=== PATIENT | male | born 1985 | race African-American/Black ===

== ENCOUNTER 2017-08-01 16:09 | Emergency (ER) | payer MEDICAID, SELFPAY ==
[2017-08-01 16:11] VITALS: BP 136/76; PULSE 67; RESP 16; TEMP 37.2; O2SAT 97; BMI 18.3
== END 2017-08-01 16:55 | disposition left against medical advice (07) ==
LOC: ED 16:48
PROVIDERS: Emergency Provider Emergency Medicine
DX: R11.2 Nausea with vomiting, unspecified (principal)

== ENCOUNTER 2017-08-01 19:03 | Emergency (ER) | payer MEDICAID, SELFPAY ==
[2017-08-01 19:04] VITALS: BP 122/71; PULSE 85; RESP 16; TEMP 37.8; O2SAT 98; BMI 25.2
--- NOTE | 2017-08-01 19:46 | ED.DCSUM_ITS ---
- ER Visit Summary Date of Service: 08/01/17 Chief Complaint: Nausea and vomiting History of Present Illness: The patient is a 31 M presenting with nausea and vomiting since yesterday. He states he has had several episodes of emesis and was unable to keep p.o. down. He does have sick contacts. Denies possibility of bad food exposure. He states he has had loose stool. Temperature up to 100.0. Denies other complaints. Physical Examination: Vitals are stable. Patient is afebrile. Alert no acute distress. HEENT exam is unremarkable. Neck is supple. Lungs are clear and equal bilaterally. Heart is regular rate and rhythm. Abdomen is soft mild epigastric tenderness, no rebound or guarding. Extremities are unremarkable. Skin is warm and dry. No focal neurologic deficit. Remainder of exam is unremarkable. Emergency Department Course and Treatment: Patient is given Zofran po. He had a vagal episode when IV was attempted. He states he did not completely pass out. He refuses further IV placement attempts. CBC shows a white count of 13.4. Chemistries unremarkable. Liver lipase are normal except for AST 47. Patient is feeling improved in the emergency department. He is able to tolerate p.o. He is given a prescription for Zofran. Advised to follow-up with primary care physician. Advised return ED if worsening complaints. Disposition: Discharge home Impression: Nausea vomiting This note was generated with [employer] dictation software. It may contain incorrect words, spelling, and punctuation that were not noted in review of the chart prior to signing ED Disposition - Plan for ED Patient: Chief Complaint: Nausea/Vomiting Referrals: Care Physician,No Primary [Primary Care Provider] -
[2017-08-01] MEDS: Ondansetron ODT 4 MG Tablet PO (20:19)
[2017-08-01 20:41] LABS: Absolute Neutrophil Count 7.6 X10^3/uL (2.0-7.7); Basophil# 0.12 X10^3/uL; Basophil% 0.9 % (0-1); Eosinophil# 0.11 X10^3/uL; Eosinophils% 0.8 % (0-5); Hematocrit 38.4 % (40-54); Hemoglobin 13.9 g/dl (13.0-16.5); Mean Corp Hgb Conc 36.2 g/gl (32-36); Mean Corpuscular Hgb 31.9 pg (27.0-32.0); Mean Corpuscular Volume 88.1 fL (80-94); Mean Platelet Vol. 10.7 fl (6.2-12.0); Monocyte# 1.32 X10^3/uL; Monocyte% 9.8 % (0-10); Neutrophil # 7.56 X10^3/uL (2.7-7.7); Neutrophil % 56.4 % (47-70); Platelet Count 295 K/mm3 (150-450); RBC Distribution Width CV 11.8 % (11.6-14.6); RBC Distribution Width SD 36.6 fl (35.1-43.9); Red Blood Count 4.36 M/mm3 (4.6-6.2); White Blood Count 13.4 K/mm3 (4.4-11.0)
[2017-08-01 20:44] LABS: POSITIVE COUNT NO; POSITIVE DIFFERENTIAL NO; POSITIVE MORPHOLOGY NO
[2017-08-01 21:00] LABS: AST(SGOT) 47 U/L (15-37); Alanine Aminotransfer ALT/SGPT 25 U/L (16-61); Alkaline Phosphatase 78 U/L (45-117); Anion Gap 6 (5-15); BUN 6 mg/dL (7-18); Calcium,Total 8.7 mg/dL (8.5-10.1); Chloride 107 mmol/L (98-107); Creatinine, Serum 1.21 mg/dL (0.70-1.30); EST Glomerular Filtration Rate 75 mL/min (>60); Est Glom Filt Rate - Afr Amer 91 mL/min (>60); Estimated Creatinine Clearance 95.94 ml/min; Globulin 3.9 g/dL (2.2-4.2); Glucose 93 mg/dL (74-106); Lipase 100 U/L (73-393); Protein, Total 7.9 g/dL (6.4-8.2); Sodium Level 138 mmol/L (136-145)
--- NOTE | 2017-08-01 21:09 | ED.DEP ---
ED Disposition - Plan for ED Patient: Chief Complaint: Nausea/Vomiting Instructions: ED Nausea Vomiting Prescriptions: Ondansetron [Zofran Odt] 4 mg PO Q8H PRN PRN #10 tablet PRN Reason: Nausea Referrals: Care Physician,No Primary [Primary Care Provider] - Spencer Barrera MD [STAFF PHYSICIAN] -
[2017-08-01 21:41] VITALS: BP 119/81; PULSE 76; RESP 16; O2SAT 100
== END 2017-08-01 21:42 | disposition home or self-care (01) ==
PROVIDERS: Emergency Provider Emergency Medicine
DX: R11.2 Nausea with vomiting, unspecified (principal); Z72.0 Tobacco use
CPT/HCPCS: 80053; 83690; 85025; 99283; A4216; J2405

== ENCOUNTER 2019-09-12 10:04 | Emergency (ER) | payer SELFPAY ==
[2019-09-12 10:08] VITALS: BP 129/81; PULSE 77; RESP 16; TEMP 36.8; O2SAT 95; BMI 35.4
--- NOTE | 2019-09-12 10:29 | ED.DCSUM_ITS ---
- ER Visit Summary Date of Service: 09/12/19 Chief Complaint: Right thumb laceration History of Present Illness: The patient is a 33 M past medical history. Patient's tetanus is up-to-date within the last several years. He is right-hand dominant. He was chasing his dog as it was running from him. He lacerated his right hand on a sign. No other injuries. Denies any numbness. Physical Examination: Well-appearing young male no acute distress. Vital signs stable afebrile. H EENT exam unremarkable. Lungs are clear. Heart regular rhythm no murmur. Abdomen soft nontender. Patient is moving all 4 extremities. Neurovascular intact. He has about a 3 cm laceration of the skin subcu tissue of the dorsum of his right thumb near the base. He has full flexion-extension all digits of his right hand. Normal touch sensation. There is mild oozing of blood. No pulsatile bleeding. No signs of foreign body. Test Results: None Emergency Department Course and Treatment: Procedure note: Right thumb laceration approximately 3 cm. Locally anesthetized with lidocaine. Cleaned using Shur-Clens. Irrigated and explored. Closed using 5 simple interrupted 4- 0 Ethilon sutures. Patient instructed on wound care. Proper hemostasis wound closure obtained. Treatment Plan: Wound care. Suture removal 10 days. Return if any signs of infection. Disposition: Discharge Impression: Right thumb laceration 3 cm in ER repair This note was generated with [employer] dictation software. It may contain incorrect words, spelling, and punctuation that were not noted in review of the chart prior to signing ED Disposition - Plan for ED Patient: Referrals: Care Physician,No Primary [Primary Care Provider] -
--- NOTE | 2019-09-12 10:31 | DCINST.ED_ITS ---
ED Disposition - Plan for ED Patient: Disposition: Home or Assisted Living Instructions: ED Laceration Hand Referrals: Pedro Mora MD [STAFF PHYSICIAN] - 10 Day for suture removal Additional Instructions: Ice and elevate to decrease pain and swelling. Keep wound clean clean daily with soap and water twice a day or peroxide and water. Apply antibiotic ointment. Suture removal in 10 days. You can do it yourself, we can do it or you can f ollow-up with a physician. Watch for any signs of infection such as redness, pus, fever or streaks of seeing return.
[2019-09-12 10:55] VITALS: PULSE 78; RESP 17; O2SAT 99
== END 2019-09-12 11:06 | disposition home or self-care (01) ==
LOC: ED 10:36
PROVIDERS: Emergency Provider Emergency Medicine
DX: S61.011A Laceration without foreign body of right thumb without damage to nail, initial encounter (principal); W26.8XXA Contact with other sharp object(s), not elsewhere classified, initial encounter; Y93.02 Activity, running; Y92.9 Unspecified place or not applicable; Z72.0 Tobacco use
CPT/HCPCS: 12002; 99283

== ENCOUNTER → 2022-09-09 | Outpatient (CLI) | payer OTHER, SELFPAY ==
[2022-09-09 15:14] LABS: Absolute Lymphocyte Count 3.35 X10^3/uL (0.83-4.51); Absolute Neutrophil Count 2.2 X10^3/uL (2.0-7.7); Basophil# 0.07 X10^3/uL; Eosinophil# 0.22 X10^3/uL; Eosinophils% 3.3 % (0-5); Hemoglobin 13.5 g/dL (13.0-16.5); Lymphocyte # 3.35 X10^3/ul (0.83-4.51); Lymphocyte % 50.2 % (19-41); Mean Corp Hgb Conc 34.6 g/dL (32-36); Mean Corpuscular Hgb 31.1 pg (27.0-32.0); Mean Corpuscular Volume 89.9 fL (80-94); Mean Platelet Vol. 9.7 fl (6.2-12.0); Monocyte# 0.86 X10^3/uL; Monocyte% 12.9 % (0-10); NRBC Flagged by Analyzer 0 % (0-5); Neutrophil # 2.16 X10^3/uL (2.7-7.7); Neutrophil % 32.5 % (47-70); Platelet Count 357 K/mm3 (150-450); RBC Distribution Width CV 11.8 % (11.6-14.6); RBC Distribution Width SD 38.8 fl (35.1-43.9); Red Blood Count 4.34 M/mm3 (4.6-6.2); White Blood Count 6.7 K/mm3 (4.4-11.0)
[2022-09-09 16:04] LABS: AST(SGOT) 33 U/L (15-37); Alanine Aminotransfer ALT/SGPT 30 U/L (16-61); Albumin, Serum 3.8 g/dL (3.2-5.0); Alkaline Phosphatase 85 U/L (45-117); Anion Gap 3 (5-15); BUN 9 mg/dL (7-18); BUN/Creat Ratio 7.4 RATIO (10-20); Chloride 109 mmol/L (98-107); Cholesterol 196 mg/dL (200); Creatinine, Serum 1.22 mg/dL (0.70-1.30); EST Glomerular Filtration Rate 72 mL/min (>60); Est Glom Filt Rate - Afr Amer 87 mL/min (>60); Globulin 3.9 g/dL (2.2-4.2); Glucose 77 mg/dL (74-106); High Density Lipoprotein 46 mg/dL; Potassium 4.1 mmol/L (3.5-5.1); Protein, Total 7.7 g/dL (6.4-8.2); Sodium Level 139 mmol/L (136-145); Thyroid Stim Hormone (TSH) 1.06 uIU/mL (0.358-3.74); Triglycerides 52 mg/dL; Very Low Density Lipoprotein 10 mg/dL (5-40)
[2022-09-12 14:32] LABS: ANTINUCLEAR ANTIBODIES DIRECT Negative (Negative); Angiotensin Convert Enzyme 69 U/L (14-82)
== END | disposition home or self-care (01) ==
PROVIDERS: Visit Provider Family Medicine
DX: D72.820 Lymphocytosis (symptomatic) (principal); Z13.220 Encounter for screening for lipoid disorders; K21.9 Gastro-esophageal reflux disease without esophagitis; R63.5 Abnormal weight gain; Z83.2 Family history of diseases of the blood and blood-forming organs and certain disorders involving the immune mechanism
CPT/HCPCS: 36415; 80053; 80061; 82164; 84443; 85025; 86038

== ENCOUNTER → 2022-10-24 | Outpatient (CLI) | payer OTHER, SELFPAY ==
[2022-10-24 18:02] LABS: Absolute Lymphocyte Count 2.21 X10^3/uL (0.83-4.51); Absolute Neutrophil Count 3.1 X10^3/uL (2.0-7.7); Basophil# 0.05 X10^3/uL; Basophil% 0.8 % (0-1); Eosinophil# 0.03 X10^3/uL; Eosinophils% 0.5 % (0-5); Hematocrit 36.4 % (40-54); Hemoglobin 13.2 g/dL (13.0-16.5); Lymphocyte # 2.21 X10^3/ul (0.83-4.51); Lymphocyte % 36.9 % (19-41); Mean Corp Hgb Conc 36.3 g/dL (32-36); Mean Corpuscular Hgb 32.1 pg (27.0-32.0); Mean Corpuscular Volume 88.6 fL (80-94); Mean Platelet Vol. 10.5 fl (6.2-12.0); Monocyte# 0.59 X10^3/uL; Monocyte% 9.8 % (0-10); NRBC Flagged by Analyzer 0 % (0-5); Neutrophil # 3.11 X10^3/uL (2.7-7.7); Platelet Count 339 K/mm3 (150-450); RBC Distribution Width SD 39.2 fl (35.1-43.9); Red Blood Count 4.11 M/mm3 (4.6-6.2)
[2022-10-24 18:38] LABS: ALB/GLOB Ratio 1.1 RATIO (0.9-2.4); AST(SGOT) 41 U/L (15-37); Alanine Aminotransfer ALT/SGPT 39 U/L (16-61); Alkaline Phosphatase 81 U/L (45-117); Anion Gap 5 (5-15); BUN 11 mg/dL (7-18); BUN/Creat Ratio 9.2 RATIO (10-20); CRP < 2.90 mg/L (0.0-3.0); Chloride 109 mmol/L (98-107); EST Glomerular Filtration Rate 73 mL/min (>60); Est Glom Filt Rate - Afr Amer 89 mL/min (>60); Globulin 3.7 g/dL (2.2-4.2); Glucose 106 mg/dL (74-106); PSA,Total- Diagnostic 0.62 ng/mL (0.0-4.0); Potassium 3.8 mmol/L (3.5-5.1); Protein, Total 7.7 g/dL (6.4-8.2); Sodium Level 139 mmol/L (136-145)
== END | disposition home or self-care (01) ==
LOC: MFPLAB 15:04
PROVIDERS: Visit Provider Family Medicine
DX: R10.84 Generalized abdominal pain (principal); R10.2 Pelvic and perineal pain
CPT/HCPCS: 36415; 80053; 84153; 85025; 86140

== ENCOUNTER 2022-11-10 14:35 | Emergency (ER) | payer OTHER, SELFPAY ==
[2022-11-10 14:36] VITALS: BP 142/80; PULSE 57; RESP 16; TEMP 37; O2SAT 100; BMI 26.2
--- NOTE | 2022-11-10 15:57 | EDS_ITS ---
HPI <MARLINE Clemente - Last Filed: 11/10/22 18:02> History of Present Illness Chief Complaint: Abd Pain Narrative Narrative: Patient is a 36-year-old male with no significant medical history presents to the emergency department for multiple months of generalized abdominal pain. Patient states that the pain can go from very minor to debilitating. Patient does use marijuana daily, denies any alcohol or illicit drug use. Patient did see his PCP regarding this pain, he was ordered basic laboratory values, they were all normal. Patient denies any time time the pain is worse, does not correlate with his meals. He denies any fevers or chills. Denies any blood in stool or vomit. Patient does have a history of a hernia repair in 2016. [facility] <MARLINE Clemente - Last Filed: 11/10/22 18:02> [facility] Medical History (Updated 11/10/22 @ 17:58 by MARLINE Clemente) Encounter for examination required by Department of Transportation (DOT) Hernia Home Medications pantoprazole 40 mg tablet,delayed release (Protonix) 40 mg PO DAILY #30 tabs 11/10/22 [Rx Last Taken Unknown] polyethylene glycol 3350 17 gram/dose oral powder (Miralax) 17 g PO BID #119 grams 11/10/22 [Rx Last Taken Unknown] Allergy/AdvReac Type Severity Reaction Status Date / Time No Known Allergies Allergy Verified 06/14/22 16:03 Social History Smoking Status: Current some day smoker tobacco type: cigars ROS <MARLINE Clemente - Last Filed: 11/10/22 18:02> ROS ED ROS Narrative Constitutional: Negative for fever, chills, weight loss, weakness Eyes: Negative for vision loss, vision change, double vision ENT: Negative for any sore throat, ear pain, congestion Cardiovascular: Negative for any chest pain, tightness, palpitations Respiratory: Negative for any cough, sputum production, hemoptysis, dyspnea, dyspnea on exertion, orthopnea Gastrointestinal: Negative for any vomiting, diarrhea, constipation, blood in stool, blood in vomit. Positive for abdominal pain, nausea : Negative for any urinary frequency, dysuria, retention, blood in urine Muscle skeletal: Negative for any muscle joint pain, stiffness, myalgias, arthralgias, neck pain, back pain Neurological: Negative for any headache, syncope, numbness or tingling, dizziness Skin: Negative for any rashes, lumps, itching, abrasions, lacerations Psychiatric: Negative for any depression, anxiety, stress, suicidal ideation, homicidal ideation Hematologic: Negative for any easy bruising, excessive bruising, easy bleeding Allergies: Negative for any eczema, hives, rash EXAM <MARLINE Clemente - Last Filed: 11/10/22 18:02> Physical Exam Narrative Exam Narrative: Vital signs reviewed. HEET: Head normocephalic atraumatic, TMs clear bilaterally. Posterior pharynx is clear, moist mucous membranes. Nares clear bilaterally. Neck: Supple with no lymphadenopathy or tenderness. No signs of meningismus, negative jolt sign. Cardiac: Regular rate and rhythm no murmurs gallops or rubs, equal peripheral pulses bilaterally. Respiratory: Lungs clear to auscultation bilaterally. No chest tenderness. Abdomen: Soft, nontender, nondistended. No abdominal bruit or pulsatile masses. No hepatosplenomegaly Extremities: No peripheral edema, no signs of gross trauma or deformity. Active full range of motion of all extremities. Neuro: Cranial nerves II through XII intact, no focal neurological deficits. Skin: Clean dry and intact with no rash, purpura, petechiae, vesicles or pustules. Backs/flank: No CVA tenderness, no midline spinal tenderness, no deformity. Psych: Normal mood and affect. No SI, HI or acute psychosis. Const Vital Signs: 11/10/22 14:36 11/10/22 17:00 11/10/22 18:09 Temperature 98.6 F Temperature Source Temporal Pulse Rate 57 L 68 Respiratory Rate 16 18 18 Blood Pressure 142/80 H 118/74 Blood Pressure Mean 100 Pulse Ox 100 99 Oxygen Delivery Method Room Air Positive well nourished and well developed General Appearance ED: well developed <Dr. Spencer Reaves MD - Last Filed: 11/10/22 23:10> Physical Exam Const Vital Signs: 11/10/22 14:36 11/10/22 17:00 11/10/22 18:09 Temperature 98.6 F Temperature Source Temporal Pulse Rate 57 L 68 Respiratory Rate 16 18 18 Blood Pressure 142/80 H 118/74 Blood Pressure Mean 100 Pulse Ox 100 99 Oxygen Delivery Method Room Air [facility] <Spencer BentleyMARLINE - Last Filed: 11/10/22 18:02> [facility] Lab Data Labs: Laboratory Results - last 24 hr 11/10/22 11/10/22 17:05 17:05 WBC 10.1 RBC 4.30 L Hgb 13.5 Hct 38.6 L MCV 89.8 MCH 31.4 MCHC 35.0 RDW Std Deviation 38.4 RDW Coeff of Johan 11.8 Plt Count 367 MPV 9.4 Immature Gran % (Auto) 0.100 Neut % (Auto) 43.6 L Lymph % (Auto) 42.4 H [place] % (Auto) 10.8 H Eos % (Auto) 2.4 Baso % (Auto) 0.7 Absolute Neuts (auto) 4.4 Absolute Lymphs (auto) 4.28 Nucleated RBC % 0 Sodium 138 Potassium 3.7 Chloride 106 Carbon Dioxide 27.0 Anion Gap 5 BUN 9 Creatinine 1.32 H Estim Creat Clear Calc 83.98 Est GFR (MDRD) Af Amer 79 Est GFR (MDRD) Non-Af 66 BUN/Creatinine Ratio 6.8 L Glucose 87 Calcium 9.4 Total Bilirubin 0.60 AST 34 ALT 28 Alkaline Phosphatase 88 Total Protein 7.9 Albumin 3.9 Globulin 4.0 Albumin/Globulin Ratio 1.0 Lipase 37 Radiography Diagnostic Testing: Clinical Impression(s) from Imaging Studies KUB X-Ray 11/10/22 17:08 IMPRESSION: Constipation. Electronically Signed: Luis Daniel Gonzalez MD at 17:27 EDT Reading Location ID and State: [facility] / [place] , Service support , Treatment and Re-Evaluation :: All radiologic examinations were read, reviewed by the emergency department attending. From these reads, a plan of care will be put in place. Patient's laboratory values show a normal CBC, patient's chemistries show slight increase in the creatinine of 1.32, patient was instructed to drink more oral fluids. Lipase was negative. Patient's physical examination yielded no concern for acute pathology such as acute cholecystitis, struct of calculi, appendicitis. Patient did receive a KUB, this did show constipation, no evidence of any small bowel obstruction. Patient did have some relief of symptoms after interventions. I spoke with the patient, the patient's father at length, the patient will be given a month prescription of Protonix, will be given a prescription for MiraLAX, and a follow-up appoint with Dr. Asencio. He is happy with the plan of care, I did explain to him to decrease his smoking that is both tobacco and marijuana. Patient will also try to include more fiber in his diet. He is happy with the plan of care, patient stable for discharge. <Dr. Spencer Reaves MD - Last Filed: 11/10/22 23:10> [facility] Lab Data Labs: Laboratory Results - last 24 hr 11/10/22 11/10/22 17:05 17:05 WBC 10.1 RBC 4.30 L Hgb 13.5 Hct 38.6 L MCV 89.8 MCH 31.4 MCHC 35.0 RDW Std Deviation 38.4 RDW Coeff of Johan 11.8 Plt Count 367 MPV 9.4 Immature Gran % (Auto) 0.100 Neut % (Auto) 43.6 L Lymph % (Auto) 42.4 H [place] % (Auto) 10.8 H Eos % (Auto) 2.4 Baso % (Auto) 0.7 Absolute Neuts (auto) 4.4 Absolute Lymphs (auto) 4.28 Nucleated RBC % 0 Sodium 138 Potassium 3.7 Chloride 106 Carbon Dioxide 27.0 Anion Gap 5 BUN 9 Creatinine 1.32 H Estim Creat Clear Calc 83.98 Est GFR (MDRD) Af Amer 79 Est GFR (MDRD) Non-Af 66 BUN/Creatinine Ratio 6.8 L Glucose 87 Calcium 9.4 Total Bilirubin 0.60 AST 34 ALT 28 Alkaline Phosphatase 88 Total Protein 7.9 Albumin 3.9 Globulin 4.0 Albumin/Globulin Ratio 1.0 Lipase 37 Radiography Diagnostic Testing: Clinical Impression(s) from Imaging Studies KUB X-Ray 11/10/22 17:08 IMPRESSION: Constipation. Electronically Signed: Luis Daniel Gonzalez MD at 17:27 EDT , Treatment and Re-Evaluation :: All radiologic examinations were read, reviewed by the emergency department attending. From these reads, a plan of care will be put in place. Patient's laboratory values show a normal CBC, patient's chemistries show slight increase in the creatinine of 1.32, patient was instructed to drink more oral fluids. Lipase was negative. Patient's physical examination yielded no concern for acute pathology such as acute cholecystitis, struct of calculi, appendicitis. Patient did receive a KUB, this did show constipation, no evidence of any small bowel obstruction. Patient did have some relief of symptoms after interventions. I spoke with the patient, the patient's father at length, the patient will be given a month prescription of Protonix, will be given a prescription for MiraLAX, and a follow-up appoint with Dr. Asencio. He i s happy with the plan of care, I did explain to him to decrease his smoking that is both tobacco and marijuana. Patient will also try to include more fiber in his diet. He is happy with the plan of care, patient stable for discharge. Jelly: Patient was seen by me. I agree with the above extenders note, note was done by both me and the PA as I may have edited some of the above. Discharge Plan Triage Chief Complaint: Abd Pain ED Midlevel Provider: Spencer Bentley ED Provider: Spencer Reaves Dx/Rx/DC Orders Clinical Impression: Abdominal pain, Acute constipation Instructions: Abdominal Pain, ED Constipation (Adult) Prescriptions: New pantoprazole [Protonix] 40 mg tablet,delayed release (DR/EC) 40 mg PO DAILY Qty: 30 1RF polyethylene glycol 3350 [Miralax] 17 gram/dose powder 17 g PO BID Qty: 119 0RF Primary Care Provider: Pedro Mora Referrals: Pedro Mora MD [Primary Care Provider] - Ramesh Asencio DO [Med Staff - Active Staff] - Activity Restrictions/Additional Instructions: Follow-up with Dr. Asencio. Take the Protonix every day in the morning. Use the MiraLAX twice a day. Disposition Disposition: Home, Self Care Discharge Date/Time: 11/10/22 18:10
[2022-11-10] MEDS: Mag Hydrox/Al Hydrox/Simeth 30 ML UDC PO (16:41)
[2022-11-10 17:00] VITALS: RESP 18
[2022-11-10] MEDS: Famotidine 200 MG/20 ML MDV 20 MG in 0.9% Normal Saline (Pres. free 8 ML 300 MG IV (17:05)
--- NOTE | 2022-11-10 17:08 | RAD_ITS ---
EXAM: XR ABDOMEN, 1 VIEW CLINICAL INDICATION: abdominal pain TECHNIQUE: Frontal supine view of the abdomen/pelvis. COMPARISON: 6..17 lspine FINDINGS: LOWER THORAX: No acute pathology. GASTROINTESTINAL TRACT: Large amount of stool in the rectal vault and colon can suggest constipation. ORGANS: Unremarkable as visualized. No organomegaly. No abnormal calcifications. BONES/JOINTS: No acute pathology. SOFT TISSUES: No acute pathology. RAD/Abdomen Single View IMPRESSION: Constipation. Electronically Signed: Luis Daniel Gonzalez MD at 17:27 EDT ,
[2022-11-10 17:15] LABS: Absolute Lymphocyte Count 4.28 X10^3/uL (0.83-4.51); Absolute Neutrophil Count 4.4 X10^3/uL (2.0-7.7); Basophil# 0.07 X10^3/uL; Basophil% 0.7 % (0-1); Eosinophil# 0.24 X10^3/uL; Eosinophils% 2.4 % (0-5); Hematocrit 38.6 % (40-54); Hemoglobin 13.5 g/dL (13.0-16.5); Lymphocyte # 4.28 X10^3/ul (0.83-4.51); Lymphocyte % 42.4 % (19-41); Mean Corpuscular Hgb 31.4 pg (27.0-32.0); Mean Corpuscular Volume 89.8 fL (80-94); Mean Platelet Vol. 9.4 fl (6.2-12.0); Monocyte# 1.09 X10^3/uL; Monocyte% 10.8 % (0-10); NRBC Flagged by Analyzer 0 % (0-5); Neutrophil # 4.41 X10^3/uL (2.7-7.7); Neutrophil % 43.6 % (47-70); Platelet Count 367 K/mm3 (150-450); RBC Distribution Width CV 11.8 % (11.6-14.6); RBC Distribution Width SD 38.4 fl (35.1-43.9); White Blood Count 10.1 K/mm3 (4.4-11.0)
[2022-11-10] MEDS: Ondansetron 4 MG/2 ML Vial IV (17:21)
[2022-11-10 17:39] LABS: AST(SGOT) 34 U/L (15-37); Alanine Aminotransfer ALT/SGPT 28 U/L (16-61); Albumin, Serum 3.9 g/dL (3.2-5.0); Alkaline Phosphatase 88 U/L (45-117); Anion Gap 5 (5-15); BUN 9 mg/dL (7-18); BUN/Creat Ratio 6.8 RATIO (10-20); Calcium,Total 9.4 mg/dL (8.5-10.1); Chloride 106 mmol/L (98-107); Creatinine, Serum 1.32 mg/dL (0.70-1.30); EST Glomerular Filtration Rate 66 mL/min (>60); Est Glom Filt Rate - Afr Amer 79 mL/min (>60); Estimated Creatinine Clearance 83.98 ml/min; Glucose 87 mg/dL (74-106); Lipase 37 U/L (13-75); Potassium 3.7 mmol/L (3.5-5.1); Protein, Total 7.9 g/dL (6.4-8.2); Sodium Level 138 mmol/L (136-145)
[2022-11-10 18:09] VITALS: BP 118/74; PULSE 68; RESP 18; O2SAT 99
== END 2022-11-10 18:10 | disposition home or self-care (01) ==
PROVIDERS: Nurse Practitioner; Emergency Provider Emergency Medicine; PCP Family Medicine; Visit Provider Emergency Medicine
DX: K59.00 Constipation, unspecified (principal); F17.290 Nicotine dependence, other tobacco product, uncomplicated
CPT/HCPCS: 74018; 80053; 83690; 85025; 96374; 96375; 99284; A4216; J2405; J3490

== ENCOUNTER 2022-12-05 16:09 | Emergency (ER) | payer SELFPAY ==
[2022-12-05 16:10] VITALS: BP 118/86; PULSE 110; RESP 17; TEMP 36.2; O2SAT 99; BMI 25.7
--- NOTE | 2022-12-05 17:20 | EDS_ITS ---
HPI History of Present Illness Chief Complaint: Laceration Informant: patient Onset/Context/Timing Onset: Today Narrative Narrative: Patient presents with lip laceration. He was playing basketball and had his lower lip tucked between his teeth. He lost his balance and fell forward against a pole biting through his lower lip. He denies any other injury. Tetanus is up-to-date. [facility] Medical History (Updated 12/05/22 @ 18:[address] Ijeoma Bay MD) Encounter for examination required by Department of Transportation (DOT) Hernia Home Medications pantoprazole 40 mg tablet,delayed release (Protonix) 40 mg PO DAILY #30 tabs 11/10/22 [Rx Last Taken Unknown] polyethylene glycol 3350 17 gram/dose oral powder (Miralax) 17 g PO BID #119 grams 11/10/22 [Rx Last Taken Unknown] cephalexin 500 mg capsule 500 mg PO Q12 #10 CAPSULES 12/05/22 [Rx Last Taken Unknown] Allergy/AdvReac Type Severity Reaction Status Date / Time No Known Allergies Allergy Verified 12/05/22 16:11 Social History Smoking Status: Current some day smoker tobacco type: cigars ROS ROS ED Constitutional Constitutional ED: Denies chills or fever(s) Eyes Eyes: Denies change in vision or discharge from eye(s) ENT ENT ED: Reports other Details: Lower lip laceration ; Denies discharge from eye(s), rhinorrhea or sore throat Cardiovascular Cardiovascular: Denies chest pain or palpitations Respiratory/Chest Respiratory/Chest: Denies cough or dyspnea Gastrointestinal Gastrointestinal: Denies abdominal pain, nausea or vomiting Musculoskeletal Musculoskeletal: Denies back pain, extremity pain or neck pain Integumentary Reports other Details: Lip laceration ; Denies Abrasions or rash Neurologic Neurologic: Denies headache(s) or weakness Psychiatric Psychiatric: Denies anxiety or depression Allergic/Immunologic Allergic/Immunologic ED: Denies lip swelling or urticaria EXAM Physical Exam Const Vital Signs: 12/05/22 16:10 Temperature 97.1 F L Temperature Source Temporal Pulse Rate 110 H Respiratory Rate 17 Blood Pressure 118/86 H Blood Pressure Mean 96 Pulse Ox 99 Oxygen Delivery Method Room Air Positive well nourished and well developed General Appearance ED: well developed HEENT HEENT Narrative: Teeth are stable. There is a small, 1 cm laceration on the inner surface of the left lower lip. There is a 2 cm laceration to the outer lower lip on the left right at the vermilion border. Eyes PERRL and EOMs intact bilaterally Neck full ROM Neck Narrative: No C-spine tenderness. Chest Wall inspection of chest normal and palpation of chest normal Resp normal respiratory effort and clear to auscultation bilaterally Cardio regular rhythm Rate: regular rate GI normal to inspection, nondistended, normoactive bowel sounds Extremity normal to inspection Neuro oriented x3, no focal motor deficits and no sensory deficits noted Psych mental status grossly normal Skin Skin Narrative: Lip laceration as noted above MDM MDM MDM Narrative Medical decision making narrative: Patient was given a dose of Keflex given intraoral laceration. He was consented for suture repair. Wound was anesthetized with 2 cc 1% lidocaine. Wound is cleansed. External lip laceration is closed with 3 simple interrupted sutures of 5-0 nylon. Patient is to have sutures removed in 1 week. We discussed leaving the intraoral laceration open to help prevent infection. Will be placed on Keflex twice daily for the next 5 days. He was instructed to rinse his mouth out anytime he eats or drinks to help prevent infection. He voices understanding and agreement. Discharge Plan Triage Chief Complaint: Laceration ED Provider: Ijeoma Bay Dx/Rx/DC Orders Clinical Impression: Laceration of lip Instructions: ED Laceration, Lip or Mouth Prescriptions: New cephalexin 500 mg capsule 500 mg PO Q12 Qty: 10 0RF No Action pantoprazole [Protonix] 40 mg tablet,delayed release (DR/EC) 40 mg PO DAILY Qty: 30 1RF polyethylene glycol 3350 [Miralax] 17 gram/dose powder 17 g PO BID Qty: 119 0RF Primary Care Provider: Pedro Mora Referrals: Pedro Mora MD [Primary Care Provider] - 7 Days for suture removal Disposition Disposition: Home, Self Care
[2022-12-05] MEDS: Cephalexin 250 MG Capsule 500 MG PO (17:34)
[2022-12-05] MEDS: Lidocaine 1% (20 ml mdv) 20 ML Vial INFILT (17:35)
== END 2022-12-05 18:33 | disposition home or self-care (01) ==
PROVIDERS: Emergency Provider Emergency Medicine; PCP Family Medicine; Visit Provider Emergency Medicine
DX: S01.511A Laceration without foreign body of lip, initial encounter (principal); W22.09XA Striking against other stationary object, initial encounter; Y93.67 Activity, basketball; F17.290 Nicotine dependence, other tobacco product, uncomplicated
CPT/HCPCS: 12011; 99283; A4216